=== PATIENT | female | born 1985 | race African-American/Black ===

== ENCOUNTER 2016-11-14 04:04 | Emergency (ER) | payer MEDICAID ==
[~2016-11-14] VITALS: Ht 175.3 cm; Wt 81.0 kg
[2016-11-14] MEDS ORDERED: KETOROLAC 60MG/2ML VIAL IM ONE (06:30)
[2016-11-14] MEDS ORDERED: HYDROCODONE/ACETAMINOPHEN 5/325MG TABLET PO ONE (07:30)
[2016-11-14 07:40] VITALS: BP 122/83
[2016-11-14 07:43] LABS: HCG SCREEN NEGATIVE
== END 2016-11-14 09:29 | disposition home or self-care (01) ==
LOC: ER 04:04
DX: M25.561 Pain in right knee (principal); F17.200 Nicotine dependence, unspecified, uncomplicated; F12.10 Cannabis abuse, uncomplicated; J45.909 Unspecified asthma, uncomplicated; Z88.0 Allergy status to penicillin
CPT/HCPCS: 73562; 84703; 96372; 99285; J1885; L1830; Z7610

== ENCOUNTER 2017-01-09 19:47 | Emergency (ER) | payer MEDICAID ==
[~2017-01-09] VITALS: Ht 167.6 cm; Wt 63.3 kg
[2017-01-09 19:57] VITALS: BP 100/66
== END 2017-01-09 23:00 | disposition left against medical advice (07) ==
LOC: ER 20:23
DX: R10.9 Unspecified abdominal pain (principal); Z53.21 Procedure and treatment not carried out due to patient leaving prior to being seen by health care provider

== ENCOUNTER 2018-02-11 22:56 | Emergency (ER) | payer MEDICAID ==
[~2018-02-11] VITALS: Ht 172.7 cm; Wt 64.0 kg
[2018-02-11] MEDS ORDERED: SODIUM CHLORIDE 0.9% 1,000 ML IV ONE (23:16)
[2018-02-11] MEDS ORDERED: ONDANSETRON HCL 4MG/2ML INJ IV ONE (23:30)
[2018-02-11] MEDS ORDERED: ACETAMINOPHEN 325MG TABLET PO PRN (23:30)
[2018-02-12 00:14] LABS: BASOPHILS % 0.3 % (0.0-2.0); CHLORIDE 98 mEq/L (98-107); EOSINOPHILS % 0.2 % (0.0-5.0); HEMATOCRIT. 36.8 % (36.0-48.0); HEMOGLOBIN. 12.9 g/dL (12.0-16.0); LYMPHOCYTES % 10.6 % (20.0-50.0); MEAN CORPUSCULAR HEMOGLOBIN 34.8 pg (28.0-32.0); MEAN CORPUSCULAR VOLUME 98.9 fL (81.0-99.0); MONOCYTES % 7.2 % (2.0-8.0); NEUTROPHILS % 81.7 % (40.0-76.0); PLATELET 349 x1000/uL (130-400); RED BLOOD CELL COUNT 3.71 mill/uL (4.2-5.4); RED CELL DISTRIBUTION WIDTH 12.8 % (11.6-14.6)
[2018-02-12 00:38] LABS: B-HCG QUANTITATIVE 129138 mIU/mL (<3)
[2018-02-12] MEDS ORDERED: SODIUM CHLORIDE 0.9% 1,000 ML IV ONE (00:54)
[2018-02-12] MEDS ORDERED: METOCLOPRAMIDE HCL 10MG/2ML VIAL IV ONE (01:00)
[2018-02-12] MEDS ORDERED: PYRIDOXINE 100 MG/ML 1ML IM ONE (01:00)
[2018-02-12 02:08] LABS: CLARITY URINE CLOUDY (CLEAR); COLOR URINE YELLOW (YELLOW); KETONES URINE 4+ (NEGATIVE); LEUKOCYTE ESTERASE URINE TRACE (NEGATIVE); NITRITE URINE NEGATIVE (NEGATIVE); OCCULT BLOOD URINE NEGATIVE (NEGATIVE); PH URINE 5.5 (4.5-8.0); PROTEIN URINE 1+ (NEGATIVE); SPECIFIC GRAVITY URINE 1.023 (1.005-1.030); UROBILINOGEN URINE 0.2 E.U./dL (0.2-1.0)
[2018-02-12 03:49] VITALS: BP 106/63
== END 2018-02-12 05:00 | disposition home or self-care (01) ==
LOC: ER 22:56 → CANBEDREQ 02-12 05:19
DX: O21.8 Other vomiting complicating pregnancy (principal); O26.891 Other specified pregnancy related conditions, first trimester; H53.149 Visual discomfort, unspecified; J45.909 Unspecified asthma, uncomplicated; F15.10 Other stimulant abuse, uncomplicated; F17.200 Nicotine dependence, unspecified, uncomplicated; R10.2 Pelvic and perineal pain; R51 Headache; R11.0 Nausea; Z88.0 Allergy status to penicillin; Z3A.12 12 weeks gestation of pregnancy
CPT/HCPCS: 36415; 76801; 80053; 81003; 81025; 84702; 85025; 86850; 86900; 86901; 96361; 96374; 96375; 99285; J2405; J2765; J3415; J7030

== ENCOUNTER 2019-11-29 20:33 | Observation (INO) | payer MEDICAID ==
[~2019-11-29] VITALS: Ht 170.2 cm; Wt 78.9 kg
[2019-12-04] MEDS ORDERED: IBUP-2030 PO (07:39)
== END 2019-11-29 22:30 | disposition home or self-care (01) ==
LOC: 8 EST LDRP 20:33
PROVIDERS: ADMIT Specialist; ATTEND Obstetrics & Gynecology
DX: O62.9 Abnormality of forces of labor, unspecified (principal); Z3A.39 39 weeks gestation of pregnancy
CPT/HCPCS: 99281; G0378

== ENCOUNTER 2019-12-01 00:02 | Inpatient (IN) | payer MEDICAID ==
[~2019-12-01] VITALS: Ht 171.4 cm; Wt 78.9 kg
[2019-12-01] MEDS: LACTATED RINGERS 1,000 ML IV SCH ×3 (01:00→23:40)
[2019-12-01] MEDS ORDERED: PNV1TABL76 PO (01:22)
[2019-12-01] MEDS ORDERED: FERR325T6 PO (01:22)
[2019-12-01] MEDS ORDERED: DEXT 5%/LR + PITOCIN 20UNITS/L 1,000 ML IV SCH (01:24)
[2019-12-01] MEDS ORDERED: METHYLERGONOVINE MALEATE 0.2 MG/ML IM PRN (01:30)
[2019-12-01] MEDS ORDERED: LIDOCAINE HCL 1% 20ML VIAL (Pyxis) INJ INFIL SCH (01:30)
[2019-12-01] MEDS ORDERED: NALOXONE HCL 0.4 MG/ML 1ML VIAL IM PRN (01:30)
[2019-12-01] MEDS ORDERED: AMPICILLIN 2,000 MG in SODIUM CHLORIDE 0.9% 100 ML IV SCH (01:30)
[2019-12-01] MEDS ORDERED: AMPICILLIN 1,000 MG in SODIUM CHLORIDE 0.9% 50 ML IV SCH (01:30)
[2019-12-01] MEDS ORDERED: CLINDAMYCIN 900 MG in DEXTROSE 5% WATER 50 ML IV NR (02:00)
[2019-12-01] MEDS: MISOPROSTOL 100MCG TABLET VG SCH ×3 (02:07→17:10)
[2019-12-01 02:38] LABS: CLARITY URINE CLEAR (CLEAR); COLOR URINE YELLOW (YELLOW); KETONES URINE NEGATIVE (NEGATIVE); LEUKOCYTE ESTERASE URINE NEGATIVE (NEGATIVE); NITRITE URINE NEGATIVE (NEGATIVE); OCCULT BLOOD URINE NEGATIVE (NEGATIVE); PH URINE 6.5 (4.5-8.0); PROTEIN URINE NEGATIVE (NEGATIVE); SPECIFIC GRAVITY URINE 1.006 (1.005-1.030); UROBILINOGEN URINE 0.2 E.U./dL (0.2-1.0)
[2019-12-01 02:39] LABS: BASOPHILS % 0.2 % (0.0-2.0); EOSINOPHILS % 0.4 % (0.0-5.0); HEMATOCRIT. 30.1 % (36.0-48.0); HEMOGLOBIN. 10.4 g/dL (12.0-16.0); LYMPHOCYTES % 14.5 % (20.0-50.0); MEAN CORPUSCULAR VOLUME 98.7 fL (81.0-99.0); MEAN PLATELET VOLUME 7.9 fl (7.4-10.4); MONOCYTES % 7.7 % (2.0-8.0); NEUTROPHILS % 77.2 % (40.0-76.0); PLATELET 250 x1000/uL (130-400); RED BLOOD CELL COUNT 3.05 mill/uL (4.2-5.4); RED CELL DISTRIBUTION WIDTH 13.9 % (11.6-14.6)
[2019-12-01 02:47] LABS: INR 0.9; PARTIAL THROMBOPLASTIN TIME 26.1 sec (23.4-31.0); PROTHROMBIN TIME 9.9 sec (9.6-11.0)
[2019-12-01 02:58] LABS: *AMPHETAMINES SCREEN URINE NEGATIVE (NEGATIVE); *BARBITURATES SCREEN URINE NEGATIVE (NEGATIVE); *BENZODIAZEPINES SCREEN URINE NEGATIVE (NEGATIVE); *COCAINE SCREEN URINE NEGATIVE (NEGATIVE)
[2019-12-01 02:59] LABS: CANNABINOID URINE SCREEN NEGATIVE (NEGATIVE); METHADONE URINE SCREEN NEGATIVE (NEGATIVE); OPIATES URINE SCREEN NEGATIVE (NEGATIVE); PHENCYCLIDINE URINE SCREEN NEGATIVE (NEGATIVE)
[2019-12-01] MEDS ORDERED: CLINDAMYCIN 600 MG in DEXTROSE 5% WATER 50 ML IV SCH (10:00)
[2019-12-01] MEDS: CLINDAMYCIN 600MG PREMIX 50 ML IV SCH ×2 (11:09→19:23)
[2019-12-01 11:31] LABS: HEPATITIS B SURFACE ANTIGEN NEGATIVE
[2019-12-01] MEDS: BUTORPHANOL TARTRATE 2 MG/ML VIAL IV PRN ×2 (14:59→21:39)
[2019-12-01] MEDS ORDERED: DEXT 5%/LR + PITOCIN 20UNITS/L 1,000 ML IV ONE (21:00)
[2019-12-02] MEDS ORDERED: BUPIVACAINE HCL/PF 0.25% (2.5MG/ML) 10ML ONE (03:26)
[2019-12-02] MEDS ORDERED: FENTANYL CITRATE/PF 50MCG/ML 2ML VIAL ONE (03:26)
[2019-12-02] MEDS ORDERED: SODIUM CHLORIDE 0.9% 10ML VIAL ONE (03:27)
[2019-12-02] MEDS ORDERED: ROPIVACAINE HCL/PF 0.2% (2MG/ML) EPID 200ML EPI SCH (03:30)
[2019-12-02] MEDS: CLINDAMYCIN 600MG PREMIX 50 ML IV SCH (04:37)
[2019-12-02] MEDS ORDERED: ACETAMINOPHEN 500MG TABLET PO ONE (04:45)
[2019-12-02] MEDS ORDERED: RHO(D) IMMUNE GLOBULIN 300 MCG/SYR IM PRN (08:00)
[2019-12-02] MEDS ORDERED: IBUPROFEN 400MG TABLET PO PRN (08:00)
[2019-12-02] MEDS ORDERED: DEXT 5%/LR + PITOCIN 20UNITS/L 1,000 ML IV SCH (08:05)
[2019-12-02 09:45] VITALS: BP 120/75
[2019-12-02] MEDS: IBUPROFEN 800MG TABLET PO PRN ×2 (09:50→16:50)
[2019-12-02 10:15] VITALS: BP 124/77
[2019-12-02 16:00] VITALS: BP 110/72
[2019-12-02 20:00] VITALS: BP 106/63
[2019-12-03] MEDS ORDERED: HYDROCODONE/ACETAMINOPHEN 5/325MG TABLET PO NR
[2019-12-03 04:00] VITALS: BP 111/69
[2019-12-03 08:30] VITALS: BP 106/79
[2019-12-03] MEDS ORDERED: KETOROLAC 60MG/2ML VIAL IM NR (11:45)
[2019-12-03 16:00] VITALS: BP 106/80
[2019-12-03 20:00] VITALS: BP 121/65
[2019-12-03] MEDS ORDERED: DIPHENHYDRAMINE 50MG/ML VIAL IM PRN (23:45)
[2019-12-03] MEDS ORDERED: LANOLIN OINT 7GM TUBE TOP NR (23:47)
[2019-12-03] MEDS ORDERED: KETOROLAC 30MG/ML VIAL IM NR (23:47)
[2019-12-04 07:25] LABS: HEMATOCRIT. 26.2 % (36.0-48.0); HEMOGLOBIN. 9.2 g/dL (12.0-16.0); MEAN CORPUSCULAR HEMOGLOBIN 34.7 pg (28.0-32.0); PLATELET 219 x1000/uL (130-400); RED BLOOD CELL COUNT 2.64 mill/uL (4.2-5.4); RED CELL DISTRIBUTION WIDTH 14.1 % (11.6-14.6)
[2019-12-04] MEDS ORDERED: IBUP-2030 PO (07:39)
[2019-12-04 07:45] VITALS: BP 115/73
[2019-12-04] MEDS: IBUPROFEN 800MG TABLET PO PRN (08:26)
[2019-12-04 11:13] LABS: PLATELET ESTIMATE NORMAL
== END 2019-12-04 13:06 | disposition home or self-care (01) | DRG 560 ==
LOC: 8 EST LDRP 00:02 → OBSVTOIN 00:02 → 8EST 12-02 09:15
PROVIDERS: ADMIT Obstetrics & Gynecology; ATTEND Obstetrics & Gynecology
PROC: 10E0XZZ Delivery of Products of Conception, External Approach (ICD-10-PCS; principal; 2019-12-02)
PROC: 3E0R3BZ Introduction of Anesthetic Agent into Spinal Canal, Percutaneous Approach (ICD-10-PCS; 2019-12-02)
PROC: 00HU33Z Insertion of Infusion Device into Spinal Canal, Percutaneous Approach (ICD-10-PCS; 2019-12-02)
DX: O40.3XX0 Polyhydramnios, third trimester, not applicable or unspecified (principal); O99.824 Streptococcus B carrier state complicating childbirth; O69.81X0 Labor and delivery complicated by cord around neck, without compression, not applicable or unspecified; Z37.0 Single live birth; Z3A.39 39 weeks gestation of pregnancy; Z82.49 Family history of ischemic heart disease and other diseases of the circulatory system; Z83.3 Family history of diabetes mellitus
CPT/HCPCS: 36415; 76815; 80305; 81003; 85025; 86592; 86703; 86762; 86850; 86900; 87340; J0595; J1200; J1885; J2590; J2795; J3010; J3490; J7060; J7120